=== PATIENT | female | born 1975 | race African-American/Black ===

== ENCOUNTER 2022-08-04 02:13 | Emergency (ER) | payer MEDICAID ==
[~2022-08-04] VITALS: Ht 160 cm; Wt 62.0 kg
[2022-08-04] MEDS ORDERED: T3 PO (05:40)
[2022-08-04] MEDS ORDERED: ACYC200C31 MT (05:40)
[2022-08-04] MEDS ORDERED: GABA300C MT (05:40)
[2022-08-04 05:49] VITALS: BP 120/74
== END 2022-08-04 05:50 | disposition home or self-care (01) ==
LOC: ER 02:13
DX: B01.9 Varicella without complication (principal); Z98.51 Tubal ligation status
CPT/HCPCS: 99283